=== PATIENT | male | born 1960 | race Hispanic/Latino ===

== ENCOUNTER 2017-09-02 11:05 | Observation (INO) | payer BC ==
[~2017-09-02] VITALS: Ht 170.2 cm; Wt 83.9 kg
[2017-09-02] MEDS ORDERED: LIDOCAINE HCL 1% LOCAL INJ 20 ML VIAL INJ ONE (12:45)
[2017-09-02] MEDS ORDERED: DEXAMETHASONE SOD PHOS 10 MG/1 ML VIAL INJ ONE (12:45)
[2017-09-02] MEDS ORDERED: HYDROCODONE/APAP 10MG-325MG TAB PO ONE (12:45)
[2017-09-02] MEDS ORDERED: LIDOCAINE HCL 1% LOCAL INJ 20 ML VIAL ONE (14:27)
[2017-09-02 14:50] LABS: BILIRUBIN,URINE NEGATIVE (NEGATIVE); CLARITY,URINE CLEAR (CLEAR); COLOR,URINE YELLOW (YELLOW); KETONES,URINE NEGATIVE (NEGATIVE); LEUKOCYTE ESTERASE ,URINE NEGATIVE (NEGATIVE); NITRITE,URINE NEGATIVE (NEGATIVE); PROTEIN,URINE DIPSTICK NEGATIVE (NEGATIVE); URINE UROBILINOGEN 0.2 mg/dL (0.2 - 1)
[2017-09-02 15:09] LABS: BACTERIA,URINE RARE /HPF; RBC,URINE 0-5 /HPF (0-5)
[2017-09-02 15:10] LABS: MUCUS,URINE FEW (RARE)
[2017-09-02] MEDS ORDERED: ONDANSETRON HCL INJ 2 MG/ML VIAL IV PRN (15:15)
[2017-09-02] MEDS ORDERED: MORPHINE SULFATE 2 MG/ML SYR IV PRN (15:15)
[2017-09-02] MEDS ORDERED: SODIUM CHLORIDE FLUSH 10 ML SYR INJ PRN (15:15)
[2017-09-02 15:17] LABS: BASOPHILS # (AUTO) 0.1 (0.0-0.1); BASOPHILS % 0.8 % (0.0-1.0); EOSINOPHILS # (AUTO) 0.3 (0.0-0.4); EOSINOPHILS % 3.4 % (0.0-6.0); HEMATOCRIT 44.8 % (38.2-49.6); HEMOGLOBIN 15.6 g/dL (14.0-18.0); LYMPHOCYTES # (AUTO) 2.4 (1.0-3.2); LYMPHOCYTES % 31.4 % (18.0-39.1); MEAN CORPUSCULAR HEMOGLOBIN 30.7 pg (28-32); MEAN CORPUSCULAR HGB CONC 34.8 g/dL (31-35); MEAN CORPUSCULAR VOLUME 88.2 fL (81-99); MONOCYTES # (AUTO) 0.6 (0.2-0.8); MONOCYTES % 7.7 % (4.4-11.3); NEUTROPHILS # (AUTO) 4.4 (2.1-6.9); NEUTROPHILS % 56.2 % (38.7-80.0); PLATELET COUNT 225 x10e3/uL (140-360); RED BLOOD COUNT 5.08 x10e6/uL (4.3-5.7); RED CELL DISTRIBUTION WIDTH 13.6 % (11.7-14.4)
[2017-09-02 15:32] LABS: ALANINE AMINOTRANSFERASE 59 IU/L (0-55); ALBUMIN 3.8 g/dL (3.5-5.0); ALBUMIN/GLOBULIN RATIO 1.1 (0.8-2.0); ALKALINE PHOSPHATASE 110 IU/L (40-150); ANION GAP 11.9 mmol/L (8-16); BLOOD UREA NITROGEN 12 mg/dL (7-26); BUN/CREATININE RATIO 13 (6-25); CALCIUM 10.7 mg/dL (8.4-10.2); CARBON DIOXIDE 26 mmol/L (22-29); CHLORIDE 104 mmol/L (98-107); CREATININE, SERUM 0.94 mg/dL (0.72-1.25); EST GLOMERULAR FILTRATION RATE > 60 ML/MIN (60-); GLUCOSE 102 mg/dL (74-118); POTASSIUM 3.9 mmol/L (3.5-5.1); SODIUM 138 mmol/L (136-145)
[2017-09-02 18:06] VITALS: BP 162/80
[2017-09-02 18:23] VITALS: BP 162/80
[2017-09-02 18:37] VITALS: BP 162/80
[2017-09-02 20:00] VITALS: BP 142/80
[2017-09-02] MEDS: TRIAMCINOLONE 0.1% OINTMENT 15 GM TUBE TP SCH (21:35)
[2017-09-02] MEDS: CLINDAMYCIN PHOS 900MG/ D5W 50 50 ML IV SCH (21:42)
[2017-09-02] MEDS ORDERED: SODIUM CHLORIDE 0.9% 250ML 250 ML ONE (21:50)
[2017-09-03] VITALS: BP 144/68
[2017-09-03 04:00] VITALS: BP 109/55
[2017-09-03] MEDS: CLINDAMYCIN PHOS 900MG/ D5W 50 50 ML IV SCH (05:03)
[2017-09-03 06:32] LABS: BASOPHILS % 0.1 % (0.0-1.0); HEMATOCRIT 45.2 % (38.2-49.6); HEMOGLOBIN 15.7 g/dL (14.0-18.0); LYMPHOCYTES # (AUTO) 1.4 (1.0-3.2); LYMPHOCYTES % 9.4 % (18.0-39.1); MEAN CORPUSCULAR HGB CONC 34.7 g/dL (31-35); MEAN CORPUSCULAR VOLUME 89.2 fL (81-99); MONOCYTES # (AUTO) 0.3 (0.2-0.8); MONOCYTES % 1.9 % (4.4-11.3); NEUTROPHILS # (AUTO) 12.9 (2.1-6.9); NEUTROPHILS % 88.1 % (38.7-80.0); PLATELET COUNT 265 x10e3/uL (140-360); RED BLOOD COUNT 5.07 x10e6/uL (4.3-5.7); RED CELL DISTRIBUTION WIDTH 13.6 % (11.7-14.4)
[2017-09-03 06:44] LABS: INR 1.09; PROTHROMBIN TIME 13.3 seconds (11.9-14.5)
[2017-09-03 06:53] LABS: ANION GAP 12.3 mmol/L (8-16); BLOOD UREA NITROGEN 14 mg/dL (7-26); BUN/CREATININE RATIO 14 (6-25); CALCIUM 10.8 mg/dL (8.4-10.2); CARBON DIOXIDE 25 mmol/L (22-29); CHLORIDE 101 mmol/L (98-107); CREATININE, SERUM 1.03 mg/dL (0.72-1.25); EST GLOMERULAR FILTRATION RATE > 60 ML/MIN (60-); GLUCOSE 165 mg/dL (74-118); POTASSIUM 4.3 mmol/L (3.5-5.1); SODIUM 134 mmol/L (136-145)
--- NOTE | 2017-09-03 07:28 | Consultation ---
DATE OF CONSULTATION: September 03, 2017 UROLOGY CONSULTATION REASON FOR CONSULTATION: Paraphimosis. HISTORY OF PRESENT ILLNESS: Oswald Bañuelos is a 57-year-old man who has had progressive phimosis over the last 6 months. The patient's foreskin ended up being pulled back 3 days ago. The patient was unable to replace it. Yesterday, the patient saw my partner, Dr. Arriola, in the office. He was told to go to the emergency room. The emergency room called us. I instructed the emergency room to reduce the paraphimosis if they could. They were able to reduce the paraphimosis, and admitted the patient for observation and IV antibiotics. PAST MEDICAL HISTORY: None. PAST SURGICAL HISTORY: None. ALLERGIES: NONE KNOWN. MEDICATIONS: Normally none. SOCIAL HISTORY: The patient denies smoking and drug use. He only drinks several beers per month. 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 FAMILY HISTORY: Noncontributory to the active urological problems. REVIEW OF SYSTEMS: As consistent with the above history of present illness and past surgical history. Otherwise, negative for all systems. PHYSICAL EXAMINATION GENERAL: A healthy appearing 57-year-old male lying in bed in no apparent distress. VITALS: He is currently afebrile. Vital signs are currently stable. ABDOMEN: Soft, nondistended and nontender without costovertebral angle tenderness. Kidneys are not palpable. No hepatosplenomegaly. No obvious evidence of hernia. GENITOURINARY: Testes descended bilaterally. Testes are midline bilaterally and palpably normal. The patient has a non-circumcised male phallus with phimosis with inflammation of the foreskin tip. The meatus appears to be normal, but I cannot retract the foreskin fully. LABORATORY STUDIES: White blood cell count is 7760, hemoglobin 15.6 and platelets 225,000. The patient's creatinine is 0.94. ASSESSMENT 1. Paraphimosis that is now reduced. 2. Long-standing phimosis that is now more severe. PLAN 1. Discharge the patient home with Bactrim. 2. Schedule circumcision electively as an outpatient. I discussed with the patient the risks, benefits and alternatives. He elects to proceed with circumcision electively as an outpatient. The patient understands that afterwards he will need to take time off, and he is prepared to do that. Thank you very much for involving us in the care of your patient. Will be happy to follow him along with you, as well as an outpatient. Job#: [id number] RI cc:LUCIANA BATES M.D.
--- NOTE | 2017-09-03 07:29 | Discharge Summary ---
LEOLA LOUISE, LENGTH 0:3 MARGARITO ONTIVEROS MD Job#: [id number] JEWEL
[2017-09-03 08:38] VITALS: BP 140/79
[2017-09-03] MEDS ORDERED: LEVOFLOXACIN 750MG/D5W 150ML 150 ML IV SCH (09:00)
[2017-09-03] MEDS ORDERED: FLUCONAZOLE 100 MG TAB PO SCH (09:00)
[2017-09-03] MEDS: TRIAMCINOLONE 0.1% OINTMENT 15 GM TUBE TP SCH (09:39)
--- NOTE | 2017-09-03 09:51 | History and Physical ---
Patient was placed in observation. CHIEF COMPLAINT: Unable to urinate and paraphimosis. HISTORY: Patient is a pleasant 57-year-old male with chronic history of paraphimosis. The patient basically came in because he could not urinate. Previously, he was able to reduce the foreskin of the penis and able to urinate, but now he is with urinary retention. The patient has a severe problem of the foreskin swelling and redness. The patient is otherwise stable. He had reduction in the emergency room. The patient is stable. He was in observation. Consultation to Dr. Samm West. PAST MEDICAL HISTORY: Paraphimosis. PAST SURGICAL HISTORY: Noncontributory. SOCIAL HISTORY: Patient does not smoke or use alcohol. No recreational drugs. ALLERGIES: NO KNOWN ALLERGIES. REVIEW OF SYSTEMS: Unremarkable other than unable to urinate. PHYSICAL EXAMINATION VITAL SIGNS: Temperature is 98, blood pressure 140/79, pulse rate 80, respirations 20. GENERAL: The patient is not in acute distress. HEENT: Normocephalic, atraumatic and anicteric. NECK: Supple grossly. PULMONARY: Clear. CARDIOVASCULAR: Regular rate and rhythm. ABDOMEN: Soft and unremarkable. : Penile swelling foreskin and difficulty urinating. The foreskin has now been reduced. EXTREMITIES: No cyanosis or edema. NEUROLOGIC: No focal deficit. LABORATORY: Otherwise unremarkable. IMPRESSION 1. Paraphimosis: Status post reduced in the emergency room. 2. Candidiasis infection of the foreskin secondary to urine. PLAN: The patient will continue with Bactrim and Diflucan. He will be able to go home. He will follow up Dr. Arriola for circumcision at a later date. Job#: [id number] MT
--- NOTE | 2017-09-03 10:32 | Discharge Summary ---
FINAL DIAGNOSES 1. Paraphimosis. 2. Urinary retention. 3. Foreskin candidiasis infection. Patient is a 57-year-old male who came in with difficulty with urination due to paraphimosis. The patient's foreskin has been reduced. He is stable now. He will go home with Diflucan 100 mg daily for 10 days and Bactrim DS 1 tablet b.i.d. for 10 days. Patient instructed to follow up with Dr. Ortiz Arriola or Dr. Samm West for circumcision as planned as an outpatient procedure. Patient is stable and discharged home today. Job#: [id number] JEWEL
[2017-09-03 12:15] VITALS: BP 131/66
== END 2017-09-03 12:39 | disposition home or self-care (01) ==
LOC: ER 11:05 → ERHOLD 17:22 → IMCU 17:25
PROVIDERS: ADMIT Internal Medicine; ATTEND Internal Medicine
DX: N47.2 Paraphimosis (principal); N47.1 Phimosis; B37.49 Other urogenital candidiasis; R33.8 Other retention of urine
CPT/HCPCS: 36415 ×2; 80048; 80053; 81001; 85025 ×2; 85610; 85730; 99284; G0378 ×2; J1100; J2001; J7050

== ENCOUNTER → 2017-09-13 | Day surgery (SDC) | payer BC ==
[~2017-09-13] MED LIST: BACITRACIN ZINC 15 GM OINT ONE; BUPIVACAINE 0.25% 30ML SDV INJ ONE; CEFAZOLIN SOD 1 GM VIAL ONE; DEXAMETHASONE SOD PHOS INJ 4 MG/ML VIAL ONE; FENTANYL CITRATE/PF 100MCG/2 ML INJ ONE; KETOROLAC TROMETHAMINE 30 MG/ML VIAL ONE; LIDOCAINE HCL 2% LOCAL INJ 5 ML SDV VIAL INJ ONE; MIDAZOLAM HCL 2 MG/2 ML VIAL ONE; ONDANSETRON HCL INJ 2 MG/ML VIAL ONE; PROPOFOL IV EMULSION 10 MG/ML 20 ML VIAL ONE; SEVOFLURANE INHAL SOLN 250 ML PEN BTL ONE
--- OUTSIDE RECORDS SUMMARY | 2017-09-13 08:56 | XMS REPORT | Continuity of Care Document ---
Author Author [facility] Organization [facility] Address [address] [place] [address] Phone Unavailable Care Team Providers Care Return To Factory Clerk Name Role Phone NO, PCP PCP Unavailable Insurance Providers Guarantor BañuelosJonathano Address [address] [place] [address] Email PTDECLINED Payer [facility] Policy Number [id number] Subscriber's Name Cuca Bañuelos Relationship 21 Unknown Group Number [id number] Effective Date 16 Advance Directives Directive Response Recorded Date/Time Does the patient have an advance directive? No 09/02/17 6:36pm If yes, is advance directive on file with [facility]? No 09/02/17 6:36pm If not on file with [facility] will patient provide a copy? No 09/02/17 6:36pm Do you have a Directive to Physician? No 09/02/17 4:13pm Do you have a Medical Power of Looping Machine Operator? No 09/02/17 4:13pm Do you have an out of hospital Do Not Resuscitate Order? No 09/02/17 4:13pm Do you have any special needs we should be aware of? No 09/02/17 4:13pm Do you have a support person here with you today? Yes 09/02/17 4:13pm Did patient receive Notice of Privacy Practices? Yes 09/02/17 4:13pm Did patient receive patient rights and responsibilities? Yes 09/02/17 4:13pm Problems No problem information available. Medications No medication information available. Social History Social History Problem Response Recorded Date/Time Onset Date Status Hx Psychiatric Problems No 09/02/2017 6:36pm Not Applicable Not Applicable Hx Eating Disorder No 09/02/2017 6:36pm Not Applicable Not Applicable Hx Substance Use Disorder No 09/02/2017 6:36pm Not Applicable Not Applicable Hx Depression No 09/02/2017 6:36pm Not Applicable Not Applicable Hx Alcohol Use No 09/02/2017 6:36pm Not Applicable Not Applicable Hx Substance Use Treatment No 09/02/2017 6:36pm Not Applicable Not Applicable Hx Physical Abuse No 09/02/2017 6:36pm Not Applicable Not Applicable Smoking Status Start Date Stop Date Never Smoker Hospital Discharge Instructions No hospital discharge instruction information available. Plan of Care Discharge Date 09/03/17 12:39pm Disposition HOME, SELF-CARE Instructions/Education Provided Paraphimosis Urinary Retention Prescriptions See Medication Section Referrals TOD LOYD MD (Urology) Entered Date: 09/03/2017 10:48am Address: [address] [place] [id number] Functional Status Query Response Date Recorded Assistive Devices None September 02, 2017 6:37pm Ambulation Ability Independent September 02, 2017 6:37pm Toileting Ability Independent September 02, 2017 6:37pm Allergies, Adverse Reactions, Alerts No known allergies. Immunizations No immunization information available. Vital Signs Acute Vital Signs Vital Response Date/Time Temperature (Fahrenheit) 96.6 degrees F (97.6 - 99.5) 09/03/2017 12:15pm Pulse Pulse Rate (adult) 78 bpm (60 - 90) 09/03/2017 12:15pm Respiratory Rate 18 bpm (12 - 24) 09/03/2017 12:15pm Blood Pressure 131/66 mm Hg 09/03/2017 12:15pm Height 5 ft 7 in 09/02/2017 11:30am Weight 185 lb 09/02/2017 11:30am Body Mass Index 29.0 kg/m^2 09/02/2017 6:36pm Results Laboratory Results Test Name Result Units Flags Reference Collection Date/Time Result Date/ Time Comments White Blood Count 14.59 x10e3/uL # H 4.8-10.8 09/03/2017 5:55am 2017 6:42am Red Blood Count 5.07 x10e6/uL 4.3-5.7 09/03/2017 5:55am 09/03/2017 6: 42am Hemoglobin 15.7 g/dL 14.0-18.0 09/03/2017 5:55am 09/03/2017 6:42am Hematocrit 45.2 % 38.2-49.6 09/03/2017 5:55am 09/03/2017 6:42am Mean Corpuscular Volume 89.2 fL 81-99 09/03/2017 5:55am 09/03/2017 6: 42am Mean Corpuscular Hemoglobin 31.0 pg 28-32 09/03/2017 5:55am 09/03/2017 6:42am Mean Corpuscular Hemoglobin Concent 34.7 g/dL 31-35 09/03/2017 5:55am 09/03/2017 6:42am Red Cell Distribution Width 13.6 % 11.7-14.4 09/03/2017 5:55am 2017 6:42am Platelet Count 265 x10e3/uL 140-360 09/03/2017 5:55am 09/03/2017 6: 42am Neutrophils (%) (Auto) 88.1 % H 38.7-80.0 09/03/2017 5:55am 09/03/2017 6 :42am Lymphocytes (%) (Auto) 9.4 % L 18.0-39.1 09/03/2017 5:55am 09/03/2017 6: 42am Monocytes (%) (Auto) 1.9 % L 4.4-11.3 09/03/2017 5:55am 09/03/2017 6: 42am Eosinophils (%) (Auto) 0.0 % 0.0-6.0 09/03/2017 5:55am 09/03/2017 6: 42am Basophils (%) (Auto) 0.1 % 0.0-1.0 09/03/2017 5:55am 09/03/2017 6:42am IM GRANULOCYTES % 0.5 % 0.0-1.0 09/03/2017 5:55am 09/03/2017 6:42am Neutrophils # (Auto) 12.9 H 2.1-6.9 09/03/2017 5:55am 09/03/2017 6: 42am Lymphocytes # (Auto) 1.4 1.0-3.2 09/03/2017 5:55am 09/03/2017 6:42am Monocytes # (Auto) 0.3 0.2-0.8 09/03/2017 5:55am 09/03/2017 6:42am Eosinophils # (Auto) 0.0 0.0-0.4 09/03/2017 5:55am 09/03/2017 6:42am Basophils # (Auto) 0.0 0.0-0.1 09/03/2017 5:55am 09/03/2017 6:42am Absolute Immature Granulocyte (auto 0.07 x10e3/uL 0-0.1 09/03/2017 5: 55am 09/03/2017 6:42am Prothrombin Time 13.3 seconds 11.9-14.5 09/03/2017 5:55am 09/03/2017 6: 45am Prothromb Time International Ratio 1.09 09/03/2017 5:55am 2017 6:45am Oral Anticoagulant Therapy INR Values: 1. Low Intensity Therapy 1.5 - 2.0 2. Moderate Intensity Therapy 2.0 - 3.0 3. High Intensity Therapy(1) 2.5 - 3.5 4. High Intensity Therapy(2) 3.0 - 4.0 5. Panic Value INR > 5.0 Activated Partial Thromboplast Time 30.0 seconds 23.8-35.5 09/03/2017 5: 55am 09/03/2017 6:45am Urine Color YELLOW YELLOW 09/02/2017 2:30pm 09/02/2017 2:54pm Urine Clarity CLEAR CLEAR 09/02/2017 2:30pm 09/02/2017 2:54pm Urine Specific Boelus 1.015 1.010-1.025 09/02/2017 2:30pm 2017 2:54pm Urine pH 6.5 5 - 7 09/02/2017 2:30pm 09/02/2017 2:54pm Urine Leukocyte Esterase NEGATIVE NEGATIVE 09/02/2017 2:30pm 2017 2:54pm Urine Nitrite NEGATIVE NEGATIVE 09/02/2017 2:30pm 09/02/2017 2:54pm Urine Protein NEGATIVE NEGATIVE 09/02/2017 2:30pm 09/02/2017 2:54pm Urine Glucose (UA) NEGATIVE NEGATIVE 09/02/2017 2:30pm 09/02/2017 2: 54pm Urine Ketones NEGATIVE NEGATIVE 09/02/2017 2:30pm 09/02/2017 2:54pm Urine Urobilinogen 0.2 mg/dL 0.2 - 1 09/02/2017 2:30pm 09/02/2017 2: 54pm Urine Bilirubin NEGATIVE NEGATIVE 09/02/2017 2:30pm 09/02/2017 2: 54pm Urine Blood NEGATIVE NEGATIVE 09/02/2017 2:30pm 09/02/2017 2:54pm Urine WBC 6-10 /HPF H 0-5 09/02/2017 2:30pm 09/02/2017 3:10pm Urine RBC 0-5 /HPF 0-5 09/02/2017 2:30pm 09/02/2017 3:10pm Urine Bacteria RARE /HPF NONE 09/02/2017 2:30pm 09/02/2017 3:10pm Urine Epithelial Cells NONE /LPF NONE 09/02/2017 2:30pm 09/02/2017 3: 10pm Urine Mucus FEW H RARE 09/02/2017 2:30pm 09/02/2017 3:10pm Sodium Level 134 mmol/L L 136-145 09/03/2017 5:55am 09/03/2017 6:54am Potassium Level 4.3 mmol/L 3.5-5.1 09/03/2017 5:55am 09/03/2017 6:54am Chloride Level 101 mmol/L 98-107 09/03/2017 5:55am 09/03/2017 6:54am Carbon Dioxide Level 25 mmol/L 22-29 09/03/2017 5:55am 09/03/2017 6: 54am Anion Gap 12.3 mmol/L 8-16 09/03/2017 5:55am 09/03/2017 6:54am Blood Urea Nitrogen 14 mg/dL 7-09/03/2017 5:55am 09/03/2017 6:54am Creatinine 1.03 mg/dL 0.72-1.25 09/03/2017 5:55am 09/03/2017 6:54am BUN/Creatinine Ratio 14 6-25 09/03/2017 5:55am 09/03/2017 6:54am Estimat Glomerular Filtration Rate > 60 ML/MIN 60- 09/03/2017 5:55am 6:54am Ranges were taken from the National Kidney Disease Education Program and the National Kid[employer] Foundation literature. Reference ranges: 60 or greater: Normal 16-59 (for 3 consecutive months): Chronic kidney disease 15 or less: Kidney failure Glucose Level 165 mg/dL H 74-118 09/03/2017 5:55am 09/03/2017 6:54am Calcium Level 10.8 mg/dL H 8.4-10.2 09/03/2017 5:55am 09/03/2017 6:54am Total Bilirubin 0.6 mg/dL 0.2-1.2 09/02/2017 3:00pm 09/02/2017 3:35pm Aspartate Amino Transf (AST/SGOT) 22 IU/L 5-34 09/02/2017 3:00pm 2017 3:35pm Alanine Aminotransferase (ALT/SGPT) 59 IU/L H 0-55 09/02/2017 3:00pm 3:35pm Total Protein 7.3 g/dL 6.5-8.1 09/02/2017 3:00pm 09/02/2017 3:35pm Albumin 3.8 g/dL 3.5-5.0 09/02/2017 3:00pm 09/02/2017 3:35pm Globulin 3.5 g/dL 2.3-3.5 09/02/2017 3:00pm 09/02/2017 3:35pm Albumin/Globulin Ratio 1.1 0.8-2.0 09/02/2017 3:00pm 09/02/2017 3: 35pm Alkaline Phosphatase 110 IU/L 40-150 09/02/2017 3:00pm 09/02/2017 3: 35pm Procedures No procedure information available. Encounters Encounter Location Arrival/Admit Date Discharge/Depart Date Attending Provider Admitted Inpatient (obs) [facility] 09/02/17 5:22pm AYAAN VALLE MD
--- NOTE | 2017-09-13 10:40 | Operative Report ---
DATE OF PROCEDURE: September 13, 2017 PREOPERATIVE DIAGNOSIS: Phimosis. POSTOPERATIVE DIAGNOSIS: Phimosis. PROCEDURE: Circumcision. ANESTHESIA: General. ESTIMATED BLOOD LOSS: None. COMPLICATIONS: None. INDICATIONS: Mr. Bañuelos is a 57-year-old male with episodes of paraphimosis and recurrent phimosis, who now presents for circumcision. He and I had a long discussion regarding the alternatives, risks and benefits including doing nothing and slit circumcision. He voiced an understanding of the options and alternatives, and he elects to proceed with circumcision. He voiced explicit understanding of pain, bleeding, infection, reoperation, damage to adjacent structures, decreased sensation, poor cosmesis, scarring, short skin syndrome, post-circ syndrome, risks of surgery and anesthesia in general, and he elected to proceed. PROCEDURE IN DETAIL: After informed consent was obtained, the patient was taken to the operating suite and underwent general anesthetic. He was placed in the supine position, sterilely prepped and draped in the standard fashion for circumcision. The skin could not be retracted. A dorsal slit was performed after creating an artificial erection and marking both the proximal end of the foreskin circumference and the level of the distal glans. After the dorsal slit was performed, the skin could be retracted. Approximately 1.5 cm proximal to the glans circumferentially a 2nd indy was made. This was carried through the skin with a scalpel on both crowley proximal and distal. The lines were then connected in the dorsum. The skin was then removed intact utilizing a combination of monopolar and bipolar electrocautery. At the cessation of this, meticulous hemostasis was obtained. The skin was passed off the table as a specimen. The wound was irrigated again. Hemostasis was verified. The skin was then closed with 2 running chromic gut stitches with a U stitch at the frenulum. At the cessation of the procedure, the wound was dressed. The patient was awakened from anesthesia and transported to the recovery room in excellent condition. No untoward effects noted. All sponge and instrument counts were correct times 2. Job#: [id number]
== END | disposition home or self-care (01) ==
LOC: OR 08:53
PROVIDERS: ATTEND Urology
DX: N47.1 Phimosis (principal); N48.0 Leukoplakia of penis; N39.0 Urinary tract infection, site not specified; I10 Essential (primary) hypertension; R00.1 Bradycardia, unspecified; Z01.810 Encounter for preprocedural cardiovascular examination; Z68.30 Body mass index [BMI] 30.0-30.9, adult
CPT/HCPCS: 54161; 88304; 93005; J0690; J1100; J1885; J2001; J2250; J2405; 88305